=== PATIENT | male | born 1995 ===

== ENCOUNTER 2020-09-19 07:56 | Day surgery (SDC) | payer BC, OTHER ==
[~2020-09-19] VITALS: Ht 180.3 cm; Wt 120.8 kg
[~2020-09-19 07:56] MED LIST: BACITRACIN 50,000 UNIT ONE; BACITRACIN OINT 500U/GM, 15 GM ONE; EPINEPHRINE 1 MG/ML, 1ML ONE; EPINEPHRINE TOPICAL SOLN 1 MG/ML, 30ML ONE; FLUORESCEIN SODIUM 500 MG/5 ML ONE; LIDOCAINE/PF 1%, 30ML ONE; OXYMETAZOLINE NASAL SPRAY 0.05%,30ML ONE
[2020-09-19] MEDS ORDERED: MIDAZOLAM 1 MG/ML, 2ML ONE ×2 (08:22→08:29)
[2020-09-19] MEDS ORDERED: FENTANYL PF 250 MCG/5ML ONE (08:23)
[2020-09-19 08:26] VITALS: BP 137/85
[2020-09-19] MEDS ORDERED: LACTATED RINGERS 1,000 ML IV SCH (08:30)
[2020-09-19] MEDS ORDERED: CHLORHEXIDINE 15 ML UDC MM ONE (08:30)
[2020-09-19] MEDS ORDERED: CEFAZOLIN 1,000 MG ONE ×2 (08:34)
[2020-09-19] MEDS ORDERED: ONDANSETRON 2MG/ML, 2ML ONE (08:34)
[2020-09-19] MEDS ORDERED: PROPOFOL 10 MG/ML, 20ML ONE (08:34)
[2020-09-19] MEDS ORDERED: DEXAMETHASONE 4 MG/ML, 1ML ONE ×2 (08:34)
[2020-09-19] MEDS ORDERED: ROCURONIUM 10MG/ML,5ML ONE (08:34)
[2020-09-19] MEDS ORDERED: LIDOCAINE-MPF 2% ,5ML ONE (08:34)
[2020-09-19] MEDS ORDERED: GLYCOPYRROLATE 0.2MG/1ML, 5ML ONE (10:24)
[2020-09-19] MEDS ORDERED: NEOSTIGMINE 1 MG/ML, 10ML ONE (10:24)
[2020-09-19] MEDS ORDERED: FENTANYL PF 100 MCG/2ML ONE (12:43)
[2020-09-19] MEDS ORDERED: OXYcodone 5 MG/5 ML ORAL.SOL UDC ONE (12:44)
[2020-09-19] MEDS: FENTANYL PF 100 MCG/2ML IV PRN ×3 (12:50→13:18)
[2020-09-19] MEDS ORDERED: MEPERIDINE/PF 25MG/0.5ML IVPush PRN (13:00)
[2020-09-19] MEDS ORDERED: OXYcodone 5 MG/5 ML ORAL.SOL UDC PO PRN (13:00)
[2020-09-19] MEDS ORDERED: DIAZEPAM 5 MG/ML, 2ML IVPush PRN (13:00)
[2020-09-19] MEDS ORDERED: hydrALAzine 20 MG/ML, 1ML IV PRN (13:00)
[2020-09-19] MEDS ORDERED: LABETALOL 5MG/ML, 20ML IV PRN (13:00)
[2020-09-19] MEDS ORDERED: PROMETHAZINE 25 MG/ML, 1ML IVPush PRN (13:00)
[2020-09-19] MEDS ORDERED: DIPHENHYDRAMINE 50 MG/ML, 1ML IVPush PRN (13:00)
[2020-09-19] MEDS ORDERED: ACETAMINOPHEN 325 MG TABLET PO PRN (13:00)
[2020-09-19] MEDS ORDERED: ONDANSETRON 2MG/ML, 2ML IVPush PRN (13:00)
[2020-09-19] MEDS ORDERED: HYDROmorphone 1 MG/ML, 1ML INJ IVPush PRN (13:00)
== END 2020-09-19 14:35 | disposition home or self-care (01) ==
LOC: OUT 07:56
PROVIDERS: ATTEND Otolaryngology
DX: J34.2 Deviated nasal septum (principal); J34.3 Hypertrophy of nasal turbinates; J33.8 Other polyp of sinus; J01.01 Acute recurrent maxillary sinusitis; J32.0 Chronic maxillary sinusitis; Z20.822 Contact with and (suspected) exposure to COVID-19; Z79.899 Other long term (current) drug therapy
CPT/HCPCS: 30140; 30520; 31240; 31255; 31256; 87635; 88304; 88311; J0171; J0690; J1100; J2250; J2405; J2704; J2710; J3010; J7120

== ENCOUNTER 2020-09-26 06:56 | Day surgery (SDC) | payer BC, OTHER ==
[~2020-09-26] VITALS: Ht 180.3 cm; Wt 120.1 kg
[~2020-09-26 06:56] MED LIST changes: +ACETAMINOPHEN 325 MG TABLET PO PRN; -BACITRACIN 50,000 UNIT ONE; -BACITRACIN OINT 500U/GM, 15 GM ONE; +DIAZEPAM 5 MG/ML, 2ML IVPush PRN; +DIPHENHYDRAMINE 50 MG/ML, 1ML IVPush PRN; -EPINEPHRINE 1 MG/ML, 1ML ONE; -EPINEPHRINE TOPICAL SOLN 1 MG/ML, 30ML ONE; +FENTANYL PF 100 MCG/2ML IV PRN; -FLUORESCEIN SODIUM 500 MG/5 ML ONE; +HYDROmorphone 1 MG/ML, 1ML INJ IVPush PRN; +LABETALOL 5MG/ML, 20ML IV PRN; -LIDOCAINE/PF 1%, 30ML ONE; +MEPERIDINE/PF 25MG/0.5ML IVPush PRN; +METOCLOPRAMIDE 5 MG/ML, 2ML IVPush PRN; +ONDANSETRON 2MG/ML, 2ML IVPush PRN; +OXYcodone 5 MG/5 ML ORAL.SOL UDC PO PRN; +PROMETHAZINE 25 MG/ML, 1ML IVPush PRN; +hydrALAzine 20 MG/ML, 1ML IV PRN
[2020-09-26 07:38] VITALS: BP 127/86
[2020-09-26] MEDS ORDERED: LIDOCAINE 4%, 4 ML SYR/CANN TP ONE (09:12)
== END 2020-09-26 09:37 | disposition home or self-care (01) ==
LOC: OUT 06:56
PROVIDERS: ATTEND Otolaryngology
DX: J32.9 Chronic sinusitis, unspecified (principal); J34.89 Other specified disorders of nose and nasal sinuses; Z20.822 Contact with and (suspected) exposure to COVID-19
CPT/HCPCS: 87635